=== PATIENT | male | born 1995 | race Caucasian/White ===

== ENCOUNTER 2022-08-12 10:34 | Emergency (ER) | payer SELFPAY ==
[2022-08-12] MEDS ORDERED: MOTRIN 600 MG PO ONE (10:57)
[2022-08-12] MEDS ORDERED: MOTRIN 400 MG ONE (10:58)
--- NOTE | 2022-08-12 11:02 | ERPHSYRPT ---
- History of Present Illness Source: patient Exam Limitations: no limitations Patient Subjective Stated Complaint: pt here for fever, runny nose, sob, loose stools,aches for 2 days now, took tylenol hour ago Triage Nursing Assessment: pt alert, wakled in, undressed, resp easy, face mask in place, skin w/d/p, no edema noted, no cough, nasal congestion Physician History: 27 yo wm w fever/cough/coryza/ST/mild diarrhea/myalgias x 2 days. Pt denies N/V/dysuria/hematuria. He does not smoke. Timing/Duration: other (2 days) Cough Quality/Degree: productive cough Possible Cause: no prior episodes Modifying Factors: Improves With: nothing Associated Symptoms: fever, chills, cough, muscle aches, nasal congestion, nasal drainage, shortness of breath, sore throat Allergies/Adverse Reactions: No Known Drug Allergies Allergy (Unverified 08/12/22 10:58) Hx Influenza Vaccination/Date Given: No Hx Pneumococcal Vaccination/Date Given: No Immunizations Up to Date: Yes Travel Risk - International Travel Have you traveled outside of the country in past 3 weeks: No - Coronavirus Screening Are you exhibiting any of the following symptoms?: Yes Symptoms: Fever, Cough: New Onset, Shortness of Breath, Headaches/Body Aches/Fatigue - Vaccine Status Have you recieved a Covid-19 vaccination: No - Review of Systems Constitutional: No Symptoms, Fever, Chills, Malaise Eyes: No Symptoms Ears, Nose, & Throat: Nose Pain, Nose Congestion, Nose Discharge Respiratory: Cough, Dyspnea Cardiac: No Symptoms Abdominal/Gastrointestinal: No Symptoms, Diarrhea (Mild) Genitourinary Symptoms: No Symptoms Musculoskeletal: No Symptoms Skin: No Symptoms Neurological: No Symptoms Psychological: No Symptoms Endocrine: No Symptoms Hematologic/Lymphatic: No Symptoms Immunological/Allergic: No Symptoms - Social History Smoking Status: Never smoker Exposure to second hand smoke: No Patient Lives Alone: No - Nursing Vital Signs Nursing Vital Signs: Initial Vital Signs Respiratory Rate 18 08/12/22 10:52 O2 Sat by Pulse Oximetry 99 08/12/22 10:52 Pain Scale Pain Intensity 5 - Physical Exam General Appearance: no apparent distress Eye Exam: PERRL/EOMI, eyes nml inspection Ears, Nose, Throat Exam: normal ENT inspection, TMs normal, pharynx normal, moist mucous membranes Neck Exam: normal inspection, non-tender, supple, full range of motion, No meningismus, No mass, No Brudzinski, No Kernig's Respiratory Exam: normal breath sounds, lungs clear, airway intact Gastrointestinal/Abdomen Exam: soft, normal bowel sounds Back Exam: normal inspection, normal range of motion Extremity Exam: normal inspection, normal range of motion Neurologic Exam: alert, oriented x 3, cooperative, flute polisher II-XII nml as tested, normal mood/affect, nml cerebellar function, nml station & gait, sensation nml Skin Exam: normal color, warm, dry Lymphatic Exam: No adenopathy SpO2 Interpretation: normal SpO2: 99 O2 Delivery: Room Air - Course Nursing assessment & vital signs reviewed: Yes Ordered Tests: Medication Summary Discontinued Medications Generic Name Dose Route Start Last Admin Trade Name Oniq PRN Reason Stop Dose Admin Ibuprofen 800 mg 08/12/22 10:57 08/12/22 11:48 Ibuprofen 600 Mg Tablet PO 08/12/22 10:58 800 mg STAT ONE Administration Ibuprofen Confirm 08/12/22 10:58 Ibuprofen 400 Mg Tablet Administered 08/12/22 10:59 Dose 800 mg .ROUTE .STK-MED ONE Lab/Rad Data: Laboratory Results 08/12/22 08/12/22 Range/Units 11:03 10:58 Influenza Type A Ag POSITIVE (NEGATIVE) Influenza Type B Ag NEGATIVE (NEGATIVE) RSV (PCR) NEGATIVE (Negative) SARS-CoV-2 (PCR) NEGATIVE (NEGATIVE) Group A Strep Antibody NOT DETECTED (NEGATIVE) - Progress Progress Note: 08/12/22 11:46 800mg po Motrin Counseled pt/family regarding: lab results, diagnosis, need for follow-up - Departure Departure Disposition: Home Clinical Impression: Influenza A Condition: Stable Critical Care Time: No Referrals: DOCTOR,NO FAMILY [Primary Care Provider] - Follow up/PCP as directed Instructions: Flu, Adult (DC) Additional Instructions: Rest/Fluids/Motrin/Tylenol Follow up as needed Forms: Work/School Release Form Prescriptions: Oseltamivir Phosphate [Tamiflu] 75 mg PO BID #10 cap
[2022-08-12 11:22] VITALS: BP 125/80; PULSE 101
[2022-08-12 11:40] LABS: INFLUENZA B NEGATIVE (NEGATIVE); RESPIRATORY SYNCTIAL VIRUS NEGATIVE (Negative); SARS-CoV-2 Xpert Express NEGATIVE (NEGATIVE)
[2022-08-12 11:43] LABS: INFLUENZA A POSITIVE (NEGATIVE)
[2022-08-12 11:48] VITALS: O2SAT 99
== END 2022-08-12 11:54 | disposition home or self-care (01) ==
LOC: ED 10:34
DX: J10.1 Influenza due to other identified influenza virus with other respiratory manifestations (principal); R50.9 Fever, unspecified; R05.1 Acute cough; R09.81 Nasal congestion; R19.7 Diarrhea, unspecified; M79.10 Myalgia, unspecified site; Z28.310 Unvaccinated for COVID-19
CPT/HCPCS: 0241U; 87651; 99282; A9270-GY